=== PATIENT | female | born 1995 ===

== ENCOUNTER 2021-04-05 09:10 | Outpatient (CLI) | payer OTHER | END 2021-04-05 09:11 | disposition home or self-care (01) | LOC: LABHHL 09:10 | PROVIDERS: ATTEND Otolaryngology Otology & Neurotology | DX: J33.9 Nasal polyp, unspecified (principal); J32.3 Chronic sphenoidal sinusitis; J32.0 Chronic maxillary sinusitis | CPT/HCPCS: 88304; 88305; 88311; 88312 ==